=== PATIENT | female | born 1990 | race Hispanic/Latino ===

== ENCOUNTER 2023-07-30 08:39 | Inpatient (IN) | payer MEDICAID, SELFPAY ==
[2023-07-30 09:31] VITALS: BMI 32.3
[2023-07-30] MEDS ORDERED: Promethazine HCl 25 MG/ML VIAL IM PRN (10:23)
[2023-07-30] MEDS ORDERED: hydrALAZINE 20 MG/ML VIAL SLOW IVP PRN (10:23)
[2023-07-30] MEDS ORDERED: Ondansetron PF 4 MG/2 ML Vial IVP PRN (10:23)
[2023-07-30] MEDS ORDERED: Lidocaine 1% (PF) 30 ML VIAL SC PRN (10:23)
[2023-07-30] MEDS ORDERED: Acetaminophen 500 MG TAB PO PRN (10:23)
[2023-07-30] MEDS ORDERED: Penicillin G Potassium 5 MILL.UNITS in Sodium Chloride 0.9% 100 ML IVPB SCH (10:30)
[2023-07-30] MEDS ORDERED: Oxytocin 30 units/NS 500 ML 500 ML IV SCH (10:30)
[2023-07-30 11:42] LABS: Hemoglobin 13.2 g/dL (12.0-15.5); Mean Corpuscular HGB CONC 34.7 g/dL (32.0-36.0); Mean Corpuscular Hemoglobin 32.2 pg (27.0-33.0); Mean Corpuscular Volume 92.7 fl (81.6-98.3); Mean Platelet Volume 10.3 fl (7.4-10.4); Platelet Count 187 10x3/uL (150-450); RBC Distribution Width 12.9 % (11.5-14.5); White Blood Cell (WBC) Count 9.1 10x3/uL (3.5-10.5)
[2023-07-30] MEDS: Oxytocin 30 units/NS 500 ML 500 ML IV SCH (12:03)
[2023-07-30 12:48] LABS: HBSAg Index 0.19 S/CO (0-0.99); Hep B Surf Ag - L&D Non-Reactive S/CO (NonReactive)
[2023-07-30 12:49] LABS: Syphilis Antibody Nonreactive (Nonreactive); Syphilis Antibody Index 0.05 S/CO (<1.00 Non-Reactive)
[2023-07-30] MEDS ORDERED: Penicillin G 2.5 MILL.units 2.5 MILL.UNITS in Premix 1 BAG IVPB SCH (14:30)
[2023-07-30] MEDS: Misoprostol 100 MCG TAB VAG SCH ×3 (14:37→23:57)
[2023-07-30] MEDS ORDERED: Misoprostol 100 MCG TAB ONE (23:48)
[2023-07-31] MEDS: Lactated Ringer's 1,000 ML IV SCH (04:57)
[2023-07-31] MEDS: fentaNYL 50 mcg/mL 1 mL Vial SLOW IVP PRN ×3 (06:09→10:51)
[2023-07-31] MEDS ORDERED: fentaNYL/Ropivacaine Epidural 100 ML ONE (14:03)
[2023-07-31] MEDS ORDERED: diphenhydrAMINE 50 MG/ML VIAL IVP PRN (14:56)
[2023-07-31] MEDS ORDERED: ePHEDrine Sulfate 50 MG/10 ML VIAL SLOW IVP PRN (14:56)
[2023-07-31] MEDS ORDERED: Lactated Ringer's 500 ML IV PRN (14:56)
[2023-07-31] MEDS ORDERED: Acetaminophen 325 MG TAB PO PRN (14:56)
[2023-07-31] MEDS ORDERED: Ondansetron PF 4 MG/2 ML Vial IVP PRN (14:56)
[2023-07-31] MEDS ORDERED: Moisturizing Cream (Eucerin) 113 GM JAR TOP PRN (14:56)
[2023-07-31] MEDS ORDERED: Naloxone HCl 0.4 mg/ml Vial IVP PRN ×2 (14:56)
[2023-07-31] MEDS ORDERED: Promethazine HCl 25 MG/ML VIAL IM PRN (14:56)
[2023-07-31] MEDS ORDERED: fentaNYL 2 mcg/Ropivacaine 0.2% Epidural 100 ML CADD EPIDURAL SCH (15:00)
[2023-07-31] MEDS ORDERED: Communication Order-Pharmacy FS SCH (15:00)
[2023-07-31] MEDS: Oxytocin 30 units/NS 500 ML 500 ML IV SCH (15:38)
[2023-08-01] MEDS ORDERED: Azithromycin 500 MG VIAL ONE (07:47)
[2023-08-01] MEDS ORDERED: CEFAZOLIN 2 GM VIAL ONE (07:47)
[2023-08-01] MEDS ORDERED: Tranexamic Acid 1,000 MG/10 ML VIAL ONE (07:48)
[2023-08-01] MEDS ORDERED: Carboprost 250 MCG/ML AMP ONE (07:48)
[2023-08-01] MEDS ORDERED: Misoprostol 200 MCG TAB ONE (07:48)
[2023-08-01] MEDS ORDERED: Methylergonovine 0.2 MG/ML VIAL ONE (07:48)
[2023-08-01] MEDS ORDERED: ePHEDrine Sulfate 50 MG/10 ML VIAL ONE (08:42)
[2023-08-01] MEDS ORDERED: Oxytocin 10 UNITS/ML VIAL ONE (08:42)
[2023-08-01] MEDS ORDERED: Lidocaine 2% MPF 10 ML AMP (For Epidural Use) ONE (08:42)
[2023-08-01] MEDS ORDERED: Ketorolac Tromethamine 30 MG (1 mL) VIAL ONE (08:42)
[2023-08-01] MEDS ORDERED: Ondansetron PF 4 MG/2 ML Vial ONE (08:42)
[2023-08-01] MEDS ORDERED: Morphine PF 10 MG/10 ML VIAL ONE (08:43)
[2023-08-01] MEDS ORDERED: Ondansetron PF 4 MG/2 ML Vial IVP PRN ×2 (09:14)
[2023-08-01] MEDS ORDERED: Moisturizing Cream (Eucerin) 113 GM JAR TOP PRN ×2 (09:14)
[2023-08-01] MEDS ORDERED: diphenhydrAMINE 50 MG/ML VIAL IVP PRN ×2 (09:14)
[2023-08-01] MEDS ORDERED: Naloxone HCl 0.4 mg/ml Vial IVP PRN ×4 (09:14)
[2023-08-01] MEDS ORDERED: Promethazine HCl 25 MG/ML VIAL IM PRN ×2 (09:14)
[2023-08-01] MEDS ORDERED: Naloxone HCl 0.4 mg/ml Vial IV PRN (09:14)
[2023-08-01] MEDS ORDERED: Promethazine HCl 25 MG SUPP PR PRN (09:14)
[2023-08-01] MEDS ORDERED: Ketorolac Tromethamine 30 MG (1 mL) VIAL IVP PRN (09:14)
[2023-08-01] MEDS ORDERED: ePHEDrine Sulfate 50 MG/10 ML VIAL SLOW IVP PRN (09:14)
[2023-08-01] MEDS ORDERED: Lactated Ringer's 500 ML IV PRN (09:14)
[2023-08-01] MEDS ORDERED: Acetaminophen 325 MG TAB PO PRN (09:14)
[2023-08-01] MEDS ORDERED: Communication Order-Pharmacy FS SCH ×2 (09:15)
[2023-08-01 09:41] LABS: Analyzer IN Cardio CS NICU; RapidComm Collect By OR NURSE
[2023-08-01 09:44] LABS: pH (Cord, venous) 7.173 (7.250-7.350)
[2023-08-01] MEDS ORDERED: Phytonadione Neonatal 1 MG/0.5 ML AMP ONE (09:49)
[2023-08-01] MEDS ORDERED: Erythromycin Base 0.5% Oint 1 GM TUBE ONE (09:50)
[2023-08-01] MEDS ORDERED: Bisacodyl 10 MG SUPP PR PRN (12:03)
[2023-08-01] MEDS ORDERED: hydrALAZINE 20 MG/ML VIAL SLOW IVP PRN (12:03)
[2023-08-01] MEDS ORDERED: Lanolin Ointment 7 GM TUBE TOP PRN (12:03)
[2023-08-01] MEDS ORDERED: Boostrix 0.5 ML (Tdap) VIAL (>/=7 yrs of age) IM ONE (12:03)
[2023-08-01] MEDS ORDERED: Bupivacaine 0.25% HCL 30 ML VIAL ONE (16:04)
[2023-08-01 17:13] LABS: Analyzer IN Cardio CS NICU
[2023-08-01] MEDS: Ferrous Sulfate 325 MG TAB PO SCH (21:41)
[2023-08-01] MEDS: Docusate 100 MG CAP PO SCH (21:41)
[2023-08-02 05:31] LABS: Hematocrit 29.6 % (34.9-44.5); Hemoglobin 9.8 g/dL (12.0-15.5); Mean Corpuscular HGB CONC 33.1 g/dL (32.0-36.0); Mean Corpuscular Hemoglobin 31.4 pg (27.0-33.0); Mean Corpuscular Volume 94.9 fl (81.6-98.3); Mean Platelet Volume 10.3 fl (7.4-10.4); Platelet Count 146 10x3/uL (150-450); RBC Distribution Width 13.2 % (11.5-14.5); Red Blood Cell (RBC) Count 3.12 10x6/uL (3.90-5.03); White Blood Cell (WBC) Count 10.4 10x3/uL (3.5-10.5)
[2023-08-02] MEDS: HYDROcodone/Acetaminophen 5/325 mg Tablet PO PRN ×2 (05:51→15:34)
[2023-08-02] MEDS: Ferrous Sulfate 325 MG TAB PO SCH ×2 (09:00→21:10)
[2023-08-02] MEDS: Prenatal Vitamin 1 TAB PO SCH (10:09)
[2023-08-02] MEDS: Docusate 100 MG CAP PO SCH ×2 (10:09→21:10)
[2023-08-02] MEDS: Ibuprofen 800 MG TAB PO SCH ×2 (10:10→17:48)
[2023-08-02] MEDS: Lactated Ringer's 1,000 ML IV SCH (19:04)
[2023-08-03] MEDS: Ibuprofen 800 MG TAB PO SCH ×3 (01:21→18:55)
[2023-08-03] MEDS: Lactated Ringer's 1,000 ML IV SCH ×2 (08:12→08:14)
[2023-08-03] MEDS: Docusate 100 MG CAP PO SCH ×2 (10:51→18:55)
[2023-08-03] MEDS: Ferrous Sulfate 325 MG TAB PO SCH ×2 (10:51→18:55)
[2023-08-03] MEDS: Prenatal Vitamin 1 TAB PO SCH (10:52)
[2023-08-03] MEDS: HYDROcodone/Acetaminophen 5/325 mg Tablet PO PRN ×2 (10:54→18:52)
[2023-08-04] MEDS: Ibuprofen 800 MG TAB PO SCH ×2 (01:15→04:22)
[2023-08-04] MEDS: HYDROcodone/Acetaminophen 5/325 mg Tablet PO PRN (04:21)
[2023-08-04] MEDS: Simethicone Chewable 80 MG TAB PO PRN ×2 (07:57→11:51)
[2023-08-04] MEDS: Docusate 100 MG CAP PO SCH (07:57)
[2023-08-04] MEDS: Prenatal Vitamin 1 TAB PO SCH (07:58)
[2023-08-04] MEDS: Ferrous Sulfate 325 MG TAB PO SCH (07:58)
[2023-08-04 09:55] VITALS: BP 107/78; TEMP 98
[2023-08-04] MEDS ORDERED: Ibuprofen 800 MG TAB PO SCH (12:00)
== END 2023-08-04 17:00 | disposition home or self-care (01) | DRG 788 ==
LOC: CSHLD/OP 08:39 → CSHLD 10:42 → CSHPP 08-01 12:25
PROVIDERS: ADMIT Obstetrics & Gynecology; ATTEND Obstetrics & Gynecology
PROC: 10H07YZ Insertion of Other Device into Products of Conception, Via Natural or Artificial Opening (ICD-10-PCS; 2023-07-31)
PROC: 10907ZC Drainage of Amniotic Fluid, Therapeutic from Products of Conception, Via Natural or Artificial Opening (ICD-10-PCS; 2023-07-31)
PROC: 3E033VJ Introduction of Other Hormone into Peripheral Vein, Percutaneous Approach (ICD-10-PCS; 2023-07-31)
PROC: 10D00Z1 Extraction of Products of Conception, Low, Open Approach (ICD-10-PCS; principal; 2023-08-01)
PROC: 4A133R1 Monitoring of Arterial Saturation, Peripheral, Percutaneous Approach (ICD-10-PCS; 2023-08-01)
PROC: 3E033XZ Introduction of Vasopressor into Peripheral Vein, Percutaneous Approach (ICD-10-PCS; 2023-08-01)
DX: O36.5930 Maternal care for other known or suspected poor fetal growth, third trimester, not applicable or unspecified (principal); O76 Abnormality in fetal heart rate and rhythm complicating labor and delivery; Z37.0 Single live birth; Z87.891 Personal history of nicotine dependence; O34.13 Maternal care for benign tumor of corpus uteri, third trimester; Z3A.37 37 weeks gestation of pregnancy
CPT/HCPCS: 36415; 51702; 82805; 85027; 86780; 86850; 86900; 86901; 87340; 99285; J0456; J1885; J2210; J2274; J2405; J2590; J3010; J7120; S0020